=== PATIENT | female | born 2000 | race Caucasian/White ===

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

== ENCOUNTER → 2022-10-25 13:08 | Outpatient (BNVA) | payer BC, MEDICAID, SELFPAY | PROVIDERS: PCP Family Medicine; Visit Provider Podiatrist Foot & Ankle Surgery | DX: Z98.890 Other specified postprocedural states (principal); M25.571 Pain in right ankle and joints of right foot; Z47.89 Encounter for other orthopedic aftercare | CPT/HCPCS: 73610 ==

== ENCOUNTER 2022-12-31 23:16 | Emergency (ER) | payer BC, MEDICAID, SELFPAY ==
[2022-12-31 23:31] VITALS: BP 122/85; PULSE 94; RESP 18; TEMP 36.9; O2SAT 100; BMI 23.6
[2023-01-01] MEDS: oxyCODONE-APAP 5-325 mg Tablet 2 TAB PO (00:31)
[2023-01-01 00:40] LABS: Specific Gravity, Urine 1.015 (1.005-1.030); Urine Appearance Clear (CLEAR); Urine Color Yellow (Yellow); pH Urine 7 (5-7)
[2023-01-01 00:41] LABS: Add Urine Microscopic? YES; Bilirubin Urine Neg (Negative); Blood Urine Neg (Negative); Glucose Urine UA Norm (Normal); Ketones Urine 1+ (Negative); Leukocyte Esterase Urine 1+ (Negative); Nitrate Urine Negative (Negative); Protein Urine Neg (Negative); Urobilinogen Urine Neg (Negative)
[2023-01-01 00:42] LABS: RBC Urine 0-4 /hpf (0-2)
[2023-01-01 00:43] LABS: Add Urine Culture? No; Bacteria Urine 1+ /hpf; Mucus Urine TRACE /hpf
--- NOTE | 2023-01-01 01:49 | ED_ITS ---
HPI - Trauma General: Chief Complaint: Trauma Stated Complaint: fell, stomach pain Time Seen by Provider: 01/01/23 00:03 Source: patient History of Present Illness: 22-year-old female who was on the assisted chin up bar, when it fell with her, stretching her abdominal wall. She had intense pain to her right lower quadrant abdominal wall. She got up and tried to walk, and had a brief syncopal episode following. She cleared quickly from this. MD complaint: injury Onset (ago): hour(s) Loss of Consciousness: yes Location: abdomen Context: other Associated symptoms: Reports abdominal pain, nausea and syncope; Denies back pain, chest pain, chills, confusion, cough, difficulty breathing, headache(s), seizures, short of breath, vomiting or weakness Review of Systems Const: Denies: chills ENMT: Denies: throat pain Card: Reports: syncope; Denies: chest pain Resp: Denies: dyspnea, productive cough or non-productive cough GI: Reports: abdominal pain and nausea; Denies: vomiting : Reports: flank pain Musc: Denies: back pain Skin/Breast: Denies: rash Neuro: Denies: headache(s) or confusion [facility] ED Female Reproductive History: Date of last menstrual period: 07/08/21 Physical Exam Const: COMMON NORMALS: no acute distress GENERAL APPEARANCE: cooperative; not ill appearing and not frail appearing HENMT: COMMON NORMALS: normocephalic, atraumatic and Normal external nose present HEAD & SCALP: normocephalic and atraumatic FACE & SINUS: normal facial exam and face symmetric NOSE: Normal external nose present Eye: COMMON NORMALS: Equal, round and reactive pupils present and EOMs intact bilaterally PUPIL: Yes Equal, round and reactive pupils present Neck/C-Spine: GENERAL: Yes trachea midline Chest: CHEST: Yes Symmetrical chest wall rise Resp: COMMON NORMALS: normal respiratory effort, No retractions, No use of accessory muscles and clear to auscultation bilaterally AUSCULTATION: clear to auscultation bilaterally Cardio: COMMON NORMALS: regular rate and regular rhythm RATE: regular rate RHYTHM: regular rhythm GI: COMMON NORMALS: Normal to inspection, nondistended, normoactive bowel sounds present OTHER: Minimal tenderness to the right belly wall. No deeper tenderness. No flank pain. No abdominal bruising. Extremity: COMMON NORMALS: no pedal edema Neuro: JORGE L COMA SCALE: document GCS findings [place] coma scale eye opening: Spontaneous [place] coma scale verbal response: Orientated Jorge L coma scale motor response: Obey commands Jorge L coma scale total score: 15 SENSORY EXAM: Yes extremities (intact) Psych: COMMON NORMALS: speech normal SPEECH: Yes normal speech Skin: COMMON NORMALS: no rashes or lesions noted GENERAL SKIN EXAM: no rashes or lesions noted Course Vital Signs: Vital signs: Vital Signs Temperature 98.4 F 12/31/22 23:31 Pulse Rate 94 12/31/22 23:31 Respiratory Rate 18 12/31/22 23:31 Blood Pressure 122/85 12/31/22 23:31 Pulse Oximetry 100 12/31/22 23:31 Oxygen Delivery Me thod 12/31/22 23:31 MDM - Trauma Medical Decision Making Bedside ultrasound does not reveal any hematoma in the abdominal wall musculature. There is no free fluid in the pelvis or liver gutter. Urinalysis is contaminated but shows no significant blood. She will be allowed home. Lab Data Laboratory Results Urine Color Yellow (Yellow) 01/01/23 00:30 Urine Appearance Clear (CLEAR) 01/01/23 00:30 Urine pH 7 (5-7) 01/01/23 00:30 Ur Specific [place] 1.015 (1.005-1.030) 01/01/23 00:30 Urine Protein Neg (Negative) 01/01/23 00:30 Urine Glucose (UA) Norm (Normal) 01/01/23 00:30 Urine Ketones 1+ (Negative) H 01/01/23 00:30 Urine Blood Neg (Negative) 01/01/23 00:30 Urine Nitrate Negative (Negative) 01/01/23 00:30 Urine Bilirubin Neg (Negative) 01/01/23 00:30 Urine Urobilinogen Neg mg/dL (Negative) 01/01/23 00:30 Ur Leukocyte Esterase 1+ (Negative) H 01/01/23 00:30 Urine RBC 0-4 /hpf (0-2) H 01/01/23 00:30 Urine WBC 5-10 /hpf (0-5) H 01/01/23 00:30 Ur Squamous Epith Cells 10-15 /hpf (0-5) H 01/01/23 00:30 Amorphous Sediment Not Reportable 01/01/23 00:30 Urine Bacteria 1+ /hpf (NONE) H 01/01/23 00:30 Urine Mucus Trace /hpf 01/01/23 00:30 Discharge Plan Discharge Patient Disposition: Home Clinical Impression: Abdominal wall strain Condition: Stable Prescriptions: New ketorolac 10 mg tablet 10 mg PO TID PRN (Reason: pain) Qty: 10 0RF No Action (DME) cam boot See Rx Instructions .ROUTE .MEDSUPPLY Qty: 1 0RF Rx Instructions: As directed (DME) ASO to right See Rx Instructions .Route .MEDSUPPLY Qty: 1 0RF Rx Instructions: As directed by HOME Discharge Orders: Discharge ED (Routine); Ordered 01/01/23 Ordered By: Kwesi Butler Referrals: Gerard iSlva MD [Primary Care Provider] - 1-3 days Patient Instructions: Acute Abdominal Pain (ED), Opioid Safety, Pain Management Activity Restrictions/Additional Instructions: Ice frequently to the area. Perform slow gentle stretches. Medication as directed. Return for worsening pain despite treatment, vomiting liquids or medications, fever, any other concerning symptoms. Your doctor should clear you before returning to exercise Coding Level of Care Code ED Emergency Services Professional for Franki Vázquez
== END 2023-01-01 01:29 | disposition home or self-care (01) ==
PROVIDERS: Emergency Provider Emergency Medicine; PCP Family Medicine
DX: S39.011A Strain of muscle, fascia and tendon of abdomen, initial encounter (principal); W17.89XA Other fall from one level to another, initial encounter; Y93.B1 Activity, exercise machines primarily for muscle strengthening
CPT/HCPCS: 81001; 99283

== ENCOUNTER 2024-09-01 23:08 | Emergency (ER) | payer BC, MEDICAID, SELFPAY ==
[2024-09-01 23:16] VITALS: BP 129/83; PULSE 74; RESP 18; TEMP 36.8; O2SAT 100; BMI 25.4
--- NOTE | 2024-09-01 23:22 | XRR_ITS ---
PROCEDURE INFORMATION: Exam: XR Chest Exam date and time: 09/01/2024 11:52 PM Age: 24 years old Clinical indication: Sternal or substernal pain; Patient HX: Patient felt a pop in sternum when stretching arms above head. C/O sternal pain. ; Additional info: Injury TECHNIQUE: Imaging protocol: Radiologic exam of the chest. Views: 1 view. COMPARISON: CR XR chest 2V* [id number] 10/01/2018 6:45 PM FINDINGS: Lungs: No consolidation. Pleural spaces: No pleural effusion. No pneumothorax. Heart/Mediastinum: No cardiomegaly. Bones/joints: No acute findings. Sternum not well-visualized on this exam. XR/XR chest 1V portable [id number] IMPRESSION: No acute chest findings.
--- NOTE | 2024-09-02 00:09 | W.ED.GENADLT ---
HPI - General Adult General: Chief complaint: General Medical Stated complaint: moved arms sharp pain in sturnum Time Seen by Provider: 09/01/24 23:55 History of Present Illness: 24-year-old female comes in today with complaints of sharp pain in the sternum. Patient reports she was lifting her arms above her head when she felt a popping sensation in her chest wall. On exam respirations are even lungs are clear to auscultation. Patient has borderline tenderness along the right sternal costal margins. Lungs are clear to auscultation. Skin is warm and dry. Vital signs are normal. Related Data Previous Rx's Medication Instructions Recorded cam boot #1 ea 07/27/21 ASO to right #1 ea 09/09/21 ketorolac 10 mg tablet 10 mg PO TID PRN pain #10 tabs 09/02/24 Allergies Allergy/AdvReac Type Severity Reaction Status Date / Time Latex, Natural Rubber Allergy ALGY-Rash Verified 09/01/24 23:20 Review of Systems General: Reports: 10 or more systems reviewed and unremarkable except in HPI and below [facility] ED Female Reproductive History: Date of last menstrual period: 08/21/24 Physical Exam Const: COMMON NORMALS: alert HENMT: COMMON NORMALS: normocephalic HEAD & SCALP: normocephalic Neck/C-Spine: COMMON NORMALS: full ROM Chest: CHEST: Yes tenderness Resp: COMMON NORMALS: normal respiratory effort Cardio: COMMON NORMALS: regular rate RATE: regular rate Back/Pelvis: COMMON NORMALS: thoracic and lumbar spine normal to inspection Extremity: COMMON NORMALS: full ROM Neuro: SENSORIUM/ORIENTATION: Yes alert Skin: COMMON NORMALS: turgor normal GENERAL SKIN EXAM: turgor normal Course Vital Signs: Vital signs: Vital Signs Temperature 98.3 F 09/01/24 23:16 Pulse Rate 74 09/01/24 23:16 Respiratory Rate 18 09/01/24 23:16 Blood Pressure 129/83 09/01/24 23:16 Pulse Oximetry 100 09/01/24 23:16 Oxygen Delivery Me thod Room Air 09/01/24 23:16 [facility] - General Adult Medical Decision Making 24-year-old female comes in today for complaints of chest wall pain. Patient reported lifting her arms above her head when she felt a pop in her anterior chest. Since then she has had pain with movement. Patient appears nontoxic. Patient has borderline tenderness along the sternal costal edge. Differential diagnosis includes myofascial strain, costochondritis, contusion. Chest x-ray was normal. Most likely patient has myofascial strain versus costochondritis. Recommended activity as tolerated. Drink plenty of water and fluids. Follow-up with primary care for further instructions. Patient reported understanding agreed to plan. XR interpretation done by ED provider, pending radiology final review Discharge Plan Discharge Patient Disposition: Home Clinical Impression: Costal chondritis Condition: Stable Prescriptions: Continued ketorolac 10 mg tablet 10 mg PO TID PRN (Reason: pain) Qty: 10 0RF No Action (DME) cam boot See Rx Instructions .ROUTE .MEDSUPPLY Qty: 1 0RF Rx Instructions: As directed (DME) ASO to right See Rx Instructions .Route .MEDSUPPLY Qty: 1 0RF Rx Instructions: As directed by HOME Discharge Orders: Discharge ED (Routine); Ordered 09/02/24 Ordered By: Baron Mahajan Referrals: Gerard Silva MD [Primary Care Provider] - Discharge Diet: Usual diet Discharge Activity: Increase activity as tolerated Patient Instructions: Costochondritis (ED) Activity Restrictions/Additional Instructions: Activity as tolerated. Gentle stretching range of motion exercises. Ice packs for pain. Drink plenty of water and fluids. Follow-up with primary care for further instructions. Return to ED for new concerns. Stand Alone Forms: Work/School Release Coding Level of Care Code ED Accounts Receivable Clerk for Franki Vázquez
[2024-09-02] MEDS: ketorolac 10 mg Tablet PO (00:52)
[2024-09-02 00:55] VITALS: BP 111/84; PULSE 73; RESP 18; O2SAT 100
[2024-09-02 00:59] VITALS: BP 109/74; PULSE 84; O2SAT 98
== END 2024-09-02 01:01 | disposition home or self-care (01) ==
PROVIDERS: Emergency Provider Nurse Practitioner Family; PCP Family Medicine
DX: M94.0 Chondrocostal junction syndrome [Tietze] (principal)
CPT/HCPCS: 71045; 99283

== ENCOUNTER 2025-06-01 18:46 | Outpatient (CLI) | payer OTHER, SELFPAY ==
[2025-06-01 20:00] LABS: HIV 1 & 2 Antigen Non-Reactive (Non-Reactiv)
[2025-06-01 20:37] LABS: Hepatitis B Surface Antigen Non-Reactive (Nonreactive)
== END 2025-06-01 18:47 | disposition home or self-care (01) ==
PROVIDERS: PCP Family Medicine; Visit Provider Family Medicine
DX: Z01.89 Encounter for other specified special examinations (principal)
CPT/HCPCS: 86706; 86803; 87340; 87806

== ENCOUNTER 2025-06-02 09:12 | Emergency (ER) | payer OTHER, SELFPAY ==
[2025-06-02 09:39] VITALS: BP 119/82; PULSE 84; RESP 16; TEMP 36.9; O2SAT 99; BMI 30.7
[2025-06-02 11:01] LABS: Hematocrit 41.3 % (36-47); Hemoglobin 13.50 g/dL (11.27-16.99); Mean Corpuscular HGB Conc 32.7 g/dL (30-55); Mean Corpuscular Hemoglobin 29.5 pg (27-33); Mean Corpuscular Volume 90.2 fl (85-98); Nucleated Red Blood Cells % 0 %; Platelet Count 269 10^3/cmm (157-399); Red Blood Count 4.58 10^6/uL (3.85-5.65); White Blood Count 6.20 10^3/uL (3.29-11.43)
[2025-06-02 11:12] LABS: Alanine Aminotransferase 18 U/L (0-33); Albumin Level 4.3 g/dL (3.5-5.2); Alkaline Phosphatase 51 U/L (35-105); Anion Gap 14.3 (5-19); Aspartate Amino Transferase 15 U/L (0-32); Blood Urea Nitrogen 11 mg/dL (6-20); Calcium 9.4 mg/dL (8.5-10.5); Carbon Dioxide 24 mmol/L (22-29); Chloride 103 mmol/L (98-107); Creatinine Clr Calc Pharmacy 195.1760; Globulin 3.3 g/dL (1.3-4.6); Glucose 92 mg/dL (65-115); Osmolality Calculated 283 mOsm/kg (285-295); Potassium 4.3 mmol/L (3.5-5.1); Sodium 137 mmol/L (136-145); Total Protein 7.6 g/dL (6.6-8.7)
--- NOTE | 2025-06-02 11:22 | W.ED.GENADLT ---
HPI - General Adult General: Chief complaint: Needlestick/Injury/Exposure Stated complaint: needle stick 06/01/25, labs were drawn Time Seen by Provider: 06/02/25 09:33 Source: patient Mode of arrival: ambulatory Limitations: no limitations History of Present Illness: Patient is a 24-year-old female here for evaluation of a needlestick injury that occurred yesterday. Patient is an [employer] employee and had administered insulin to a patient that NPU when she accidentally stuck her finger. Wound was copiously irrigated following this. Source patient blood has already been obtained at time of my evaluation and reportedly patient was hepatitis C positive. Patient has reportedly already had labs performed. She is up-to-date on her tetanus. Childhood immunization/hepatitis B series completed. She has not noticed redness/swelling to finger. Onset (ago): day(s) (yesterday) Relieving factors: none Exacerbating factors: none Associated symptoms: Reports no associated symptoms; Deny nausea or vomiting Treatments prior to arrival: other (wound irrigation) Related Data Previous Rx's ?Medication ?Instructions ?Recorded cam boot #1 ea 07/27/21 ASO to right #1 ea 09/09/21 ketorolac 10 mg tablet 10 mg PO TID PRN pain #10 tabs 09/02/24 Allergies Allergy/AdvReac Type Severity Reaction Status Date / Time Latex, Natural Rubber Allergy ALGY-Rash Verified 09/01/24 23:20 Review of Systems Const: Denies: fever(s) GI: Denies: abdominal pain, nausea, vomiting or diarrhea Musc: Denies: extremity pain or extremity swelling [facility] Female Reproductive History: Date of last menstrual period: 05/19/25 Physical Exam Const: COMMON NORMALS: no acute distress, average body habitus, no limitations, healthy appearing, alert and well nourished Extremity: GENERAL: Yes normal exam except as noted Neuro: SENSORIUM/ORIENTATION: Yes alert Course Vital Signs: Vital signs: Vital Signs Temperature 98.5 F 06/02/25 09:39 Pulse Rate 84 06/02/25 09:39 Respiratory Rate 16 06/02/25 09:39 Blood Pressure 119/82 06/02/25 09:39 Pulse Oximetry 99 06/02/25 09:39 Oxygen Delivery Me thod Room Air 06/02/25 09:39 MDM - General Adult Medical Decision Making Patient and source patient blood have both already been obtained. Discussed how there are no PEP options for hepatitis C. Risk of coleman would be low given mechanism of injury. She will follow-up with Worker's Comp. Medical Records I reviewed the patient's medical records. Lab Data I reviewed the patient's lab results. 06/02/25 10:36 06/02/25 10:36 Laboratory Results WBC 6.20 10^3/uL (3.29-11.43) 06/02/25 10:36 RBC 4.58 10^6/uL (3.85-5.65) 06/02/25 10:36 Hgb 13.50 g/dL (11.27-16.99) 06/02/25 10:36 Hct 41.3 % (36-47) 06/02/25 10:36 MCV 90.2 fl (85-98) 06/02/25 10:36 MCH 29.5 pg (27-33) 06/02/25 10:36 MCHC 32.7 g/dL (30-55) 06/02/25 10:36 RDW 11.9 % (12.1-15.1) L 06/02/25 10:36 Plt Count 269 10^3/cmm (157-399) 06/02/25 10:36 MPV 9.2 fL (7.4-10.4) 06/02/25 10:36 Neut % (Auto) 67.9 % 06/02/25 10:36 Lymph % (Auto) 24.4 % 06/02/25 10:36 Iroquois % (Auto) 5.5 % 06/02/25 10:36 Eos % (Auto) 1.0 % 06/02/25 10:36 Baso % (Auto) 1.0 % 06/02/25 10:36 Neut # (Auto) 4.22 10^3/uL (1.8-7.7) 06/02/25 10:36 Lymph # (Auto) 1.5 10^3/uL (0.8-4.8) 06/02/25 10:36 Iroquois # (Auto) 0.3 10^3/uL (0.2-0.9) 06/02/25 10:36 Eos # (Auto) 0.1 10^3/uL (0.0-0.8) 06/02/25 10:36 Baso # (Auto) 0.1 10^3/uL (0.0-0.1) 06/02/25 10:36 Nucleated RBC % (auto) 0 % 06/02/25 10:36 Nucleated RBCs # 0.0 /100WBC 06/02/25 10:36 Sodium 137 mmol/L (136-145) 06/02/25 10:36 Potassium 4.3 mmol/L (3.5-5.1) 06/02/25 10:36 Chloride 103 mmol/L (98-107) 06/02/25 10:36 Carbon Dioxide 24 mmol/L (22-29) 06/02/25 10:36 Anion Gap 14.3 (5-19) 06/02/25 10:36 BUN 11 mg/dL (6-20) 06/02/25 10:36 Creatinine 0.5 mg/dL (0.5-0.9) 06/02/25 10:36 GFR Calculation 154.3 mL/min (90-130) H 06/02/25 10:36 Glucose 92 mg/dL (65-115) 06/02/25 10:36 Calculated Osmolality 283 mOsm/kg (285-295) L 06/02/25 10:36 Calcium 9.4 mg/dL (8.5-10.5) 06/02/25 10:36 Total Bilirubin 0.5 mg/dL (0.15-1.2) 06/02/25 10:36 AST 15 U/L (0-32) 06/02/25 10:36 ALT 18 U/L (0-33) 06/02/25 10:36 Alkaline Phosphatase 51 U/L (35-105) 06/02/25 10:36 Total Protein 7.6 g/dL (6.6-8.7) 06/02/25 10:36 Albumin 4.3 g/dL (3.5-5.2) 06/02/25 10:36 Globulin 3.3 g/dL (1.3-4.6) 06/02/25 10:36 Hepatitis A IgM Ab Non-reactive (Nonreactive) 06/02/25 10:36 Hep Bs Antigen Non-reactive (Nonreactive) 06/02/25 10:36 Hep B Core IgM Ab Non-reactive (Nonreactive) 06/02/25 10:36 Hepatitis C Antibody Non-reactive (Nonreactive) 06/02/25 10:36 HIV 1&2 Ab & HIV 1 Ag Non-reactive (Non-Reactiv) 06/02/25 10:36 HIV 1&2 Antibody Non-reactive (Non-Reactiv) 06/02/25 10:36 No radiology studies performed this visit Discharge Plan Discharge Patient Disposition: Home Clinical Impression: Needlestick injury accident Condition: Stable Prescriptions: No Action (DME) cam boot See Rx Instructions .ROUTE .MEDSUPPLY Qty: 1 0RF Rx Instructions: As directed (DME) ASO to right See Rx Instructions .Route .MEDSUPPLY Qty: 1 0RF Rx Instructions: As directed by HOME ketorolac 10 mg tablet 10 mg PO TID PRN (Reason: pain) Qty: 10 0RF Discharge Orders: Discharge ED (Routine); Ordered 06/02/25 Ordered By: Malaika Zarco Referrals: Gerard Silva MD [Primary Care Provider, [facility]] Patient Instructions: Needle Stick Injuries (ED), Patient Portal & Janie Instructions Activity Restrictions/Additional Instructions: As we discussed, source patient blood has already been collected. Blood work collected on you today. There is no medications for hepatitis C postexposure prophylaxis. You need to follow-up through Worker's Comp. and they will continue to monitor and retest blood work. Print Language: Turkish Coding Level of Care Code ED Rn Clinical Documentation for Franki Vázquez
[2025-06-02 11:38] LABS: HIV 1 & 2 Antigen Non-Reactive (Non-Reactiv)
[2025-06-02 11:47] LABS: Hepatitis A Antibody IgM Non-Reactive (Nonreactive); Hepatitis B Surface Antigen Non-Reactive (Nonreactive)
== END 2025-06-02 11:49 | disposition home or self-care (01) ==
PROVIDERS: Family Medicine; Emergency Provider Physician Assistant; PCP Family Medicine
DX: S61.239A Puncture wound without foreign body of unspecified finger without damage to nail, initial encounter (principal); W46.0XXA Contact with hypodermic needle, initial encounter
CPT/HCPCS: 36415; 80053; 80074; 85025; 87806; 99283